=== PATIENT | male | born 1965 | race Caucasian/White ===

== ENCOUNTER 2016-11-15 05:25 | Inpatient (IN) | payer BC ==
[~2016-11-15] VITALS: Ht 180.3 cm; Wt 101.4 kg
[2016-11-15 05:56] LABS: EOSINOPHIL (%) 0 % (0-5); HEMATOCRIT 41.6 % (38.0-50.0); IMMATURE GRANULOCYTE (%) 0.6 % (0.0-0.7); IMMATURE GRANULOCYTE COUNT 0.2 K/uL; INSTRUMENT ABS NEUTROPHIL CT 19.6 K/uL; MCH 32.4 PG (29.0-34.0); MCHC 34.4 G/DL (30.0-36.0); MCV 94.3 FL (86-99); MEAN PLAT.VOLUME 11.9 uM^3 (9.0-12.4); MONOCYTE (%) 5.9 % (3-12); MONOCYTE COUNT 1.4 K/uL (0-0.8); NEUTROPHIL (%) 84.5 % (45-76); NEUTROPHIL COUNT 19.6 K/uL (1.8-6.4); PLATELET COUNT 272 K/uL (156-360); RBC DIS.WIDTH-CV 13.6 % (11.8-14.6); RBC DIS.WIDTH-SD 46.3 % (39-53); RED BLOOD COUNT 4.41 M/uL (4.00-5.50); WHITE BLOOD COUNT 23.1 K/uL (4.1-10.2)
[2016-11-15] MEDS ORDERED: OXAYDO7.5 MG PO (06:00)
[2016-11-15] MEDS ORDERED: OMEPRAZOLE40 M1 PO (06:01)
[2016-11-15] MEDS ORDERED: CELEBREX200 MG PO (06:01)
[2016-11-15] MEDS ORDERED: LISINOPRIL10 MG PO (06:02)
[2016-11-15] MEDS ORDERED: CYMBALTA60 MG PO (06:02)
[2016-11-15 06:04] LABS: CHLORIDE 100 mEq/L (99-109); POTASSIUM 3.9 mEq/L (3.7-5.4); SODIUM 139 mEq/L (136-147)
[2016-11-15 06:06] LABS: GLUCOSE 199 mg/dL (70-99)
[2016-11-15 06:07] LABS: ANION GAP 20 MEQ/L (2-14)
[2016-11-15 06:08] LABS: TOTAL BILIRUBIN 0.3 mg/dL (0.0-1.0)
[2016-11-15 06:09] LABS: ALKALINE PHOSPHATASE 62 IU/L (3-129)
[2016-11-15 06:10] LABS: GFR ESTIMATE (CALCULATED) > 59 mL/min/
[2016-11-15 06:11] LABS: UREA NITROGEN (BUN) 15 mg/dL (9-23)
[2016-11-15 06:13] LABS: LIPASE 8 U/L (1.0-51.0)
[2016-11-15 06:19] LABS: TROP-I INTERPRETATION NEGATIVE; TROPONIN-I < 0.01 ng/mL (0.0-0.30)
[2016-11-15 07:21] LABS: INTER. NORMALIZED RATIO 1.1; PROTHROMBIN TIME 11.6 SEC (10.2-12.9)
[2016-11-15 07:24] LABS: PTT 27.1 SEC (25-37)
[2016-11-15 07:56] LABS: ADD MIUA? NO; BILIRUBIN NEGATIVE; BLOOD NEGATIVE; COLOR YELLOW ((YELLOW)); GLUCOSE (STRIP) NEGATIVE; KETONES NEGATIVE; LEUKOCYTES NEGATIVE; NITRITE NEGATIVE; PROTEIN (STRIP) NEGATIVE; SPECIFIC GRAVITY 1.043 (1.000-1.030); UROBILINOGEN 0.2 MG/DL (0.2-1.0)
[2016-11-15] MEDS ORDERED: CYANOCOBALAM1000 MCG PO (08:34)
[2016-11-15] MEDS ORDERED: XTAMPZA ER18 MG PO (08:36)
[2016-11-15 09:07] LABS: UCUL ADDED? NO
[2016-11-15] MEDS ORDERED: ZYLOPRIM300 MG PO (09:09)
[2016-11-15 11:26] VITALS: BP 120/65
[2016-11-15 17:38] VITALS: BP 159/72
[2016-11-16 00:09] VITALS: BP 148/70
== END 2016-11-16 01:32 | disposition short-term general hospital (02) | DRG 395 ==
LOC: EME 05:25 → EDOF 08:26 → 3EAST 08:26 → ENRESERV 08:27 → EDOF 08:29 → ENRESERV 08:30 → 3EAST 11:15
PROVIDERS: Emergency Medicine; Surgery
DX: K55.9 Vascular disorder of intestine, unspecified (principal); I10 Essential (primary) hypertension; G89.29 Other chronic pain; M54.9 Dorsalgia, unspecified; Z87.891 Personal history of nicotine dependence; Z88.2 Allergy status to sulfonamides
CPT/HCPCS: 71010; 74177; 80048; 80053; 81003; 83605; 83690; 84484; 85025; 85027; 85610; 85730; 93005; 99281; 99285; C9113; J1650; J2270; J2405; J2543; J3010; J7030; J7050